=== PATIENT | female | born 1985 | race African-American/Black ===

== ENCOUNTER 2017-12-26 13:49 | Emergency (ER) | payer SELFPAY ==
[2017-12-26 13:50] VITALS: BP 108/70; PULSE 89; RESP 16; TEMP 36.6; O2SAT 98; BMI 34.5
[2017-12-26] MEDS: Ondansetron 4 MG/2 ML Vial IV (15:13)
[2017-12-26] MEDS: 0.9% Normal Saline 1,000 ML 1000 ML IV (15:13)
[2017-12-26 15:14] LABS: Mucous, Urine 0 SEEN /hpf (<or=2+)
[2017-12-26 15:17] LABS: Color, Urine Yellow (Yellow); Glucose, Dipstick Normal (Normal); Ketone-Dipstick Negative (Negative); Leukocyte Esterase-Dipstick 25 /ul (Negative); Nitrite-Dipstick Negative (Negative); Occult Blood-Urine 10 /ul (Negative); Protein-Dipstick Negative (Negative); Specific Gravity, Urine 1.015 (1.002-1.030); Urine Bilirubin Dipstick Negative (Negative); Urine Clarity Clear (Clear); Urine Urobilinogen Normal (Normal)
[2017-12-26 15:20] LABS: Absolute Lymphocyte Count 3.08 X10^3/ul (0.83-4.51); Absolute Neutrophil Count 3.8 X10^3/uL (2.0-7.7); Basophil# 0.03 X10^3/uL; Basophil% 0.4 % (0-1); Eosinophil# 0.14 X10^3/uL; Eosinophils% 1.9 % (0-5); Hematocrit 37.9 % (37-47); Hemoglobin 12.8 g/dl (12.0-15.0); Lymphocyte # 3.08 X10^3/ul (4.0); Lymphocyte % 41.6 % (19-41); Mean Corp Hgb Conc 33.8 g/gl (32-36); Mean Corpuscular Hgb 31.1 pg (27.0-32.0); Mean Platelet Vol. 9.3 fl (6.2-12.0); Monocyte# 0.37 X10^3/uL; Neutrophil # 3.77 X10^3/uL (2.7-7.7); Platelet Count 227 K/mm3 (150-450); RBC Distribution Width CV 13.1 % (11.6-14.6); RBC Distribution Width SD 43.5 fl (35.1-43.9); Red Blood Count 4.12 M/mm3 (4.2-5.4); White Blood Count 7.4 K/mm3 (4.4-11.0)
[2017-12-26 15:20] LABS: Internal QC Validated? YES +Cl - CLEAR BKGD; Pregnancy, Urine Negative Negative
[2017-12-26 15:21] LABS: POSITIVE COUNT NO; POSITIVE DIFFERENTIAL NO; POSITIVE MORPHOLOGY NO
[2017-12-26 15:24] LABS: Bacteria 1+ /hpf (None Seen); Red Blood Cells-Urine 0-5 SEEN /hpf (0-5); Squamous Epithelial Cells - UA 0-5 SEEN /hpf (5-10); White Blood Cells 0-5 SEEN /hpf (0-5)
[2017-12-26 15:24] LABS: AST(SGOT) 13 U/L (15-37); Alanine Aminotransfer ALT/SGPT 16 U/L (13-56); Albumin, Serum 3.3 g/dL (3.2-5.0); Alkaline Phosphatase 104 U/L (45-117); Anion Gap 5 (5-15); BUN 4 mg/dL (7-18); BUN/Creat Ratio 5.5 RATIO (10-20); Calcium,Total 8.6 mg/dL (8.5-10.1); Chloride 108 mmol/L (98-107); Creatinine, Serum 0.72 mg/dL (0.55-1.02); EST Glomerular Filtration Rate 99 mL/min (>60); Est Glom Filt Rate - Afr Amer 120 mL/min (>60); Estimated Creatinine Clearance 84.65 ml/min; Globulin 3.3 g/dL (2.2-4.2); Glucose 85 mg/dL (74-106); Lipase 53 U/L (73-393); Potassium 3.7 mmol/L (3.5-5.1); Protein, Total 6.6 g/dL (6.4-8.2); Sodium Level 141 mmol/L (136-145)
--- NOTE | 2017-12-26 15:40 | ED.DCSUM_ITS ---
- ER Visit Summary Date of Service: 12/26/17 Chief Complaint: Abdominal pain History of Present Illness: The patient is a 32 F who presents with abdominal pain nausea vomiting and diarrhea. She complains of 1 month of abdominal pain but it has been more constant and last week and a half. It is diffuse but greatest in the right upper quadrant. She also reports about 5 episodes of nonbloody nonbilious emesis and 5 episodes of loose stools in the past 2 days. No fevers. Physical Examination: Afebrile vitals are stable Moist because membranes Heart regular rate and rhythm Lungs are clear Abdomen soft nondistended she has some diffuse tenderness greatest in right upper quadrant tenderness Singh sign no guarding no rebound Test Results: CBC CMP lipase urinalysis all unremarkable and is negative. Emergency Department Course and Treatment: Patient was given IV fluids and antiemetics. She is resting comfortably on reevaluation. She was advised to follow-up as an outpatient. Given 1 month of abdominal pain with normal vital signs and normal laboratory studies I do not believe this is any acute surgical or life-threatening process. Was given a referral for primary care physician and discharge. Treatment Plan: [] Disposition: Discharge Impression: Abdominal pain Vomiting Diarrhea This note was generated with [employer] dictation software. It may contain incorrect words, spelling, and punctuation that were not noted in review of the chart prior to signing ED Disposition - Plan for ED Patient: Chief Complaint: Abd Pain Referrals: Care Physician,No Primary [Primary Care Provider] -
--- NOTE | 2017-12-26 15:46 | US_ITS ---
STUDY: ULTRASOUND RIGHT UPPER QUADRANT REASON FOR VISIT: Female, 32 years old. Right upper quadrant abdominal pain and nausea and vomiting. TECHNIQUE: Ultrasound evaluation of the right upper quadrant was performed with real-time and static mak-scale imaging. TECHNICAL QUALITY: Adequate. COMPARISON: None. FINDINGS: Liver: The liver measures 15.1 cm. There is normal echogenicity of the liver. The bile ducts are within normal limits. There is hepatic color flow. The direction of portal flow is hepatopetal. There is no demonstrated mass lesion. Gallbladder: Normal distended gallbladder. The gallbladder wall measures 1.6 mm. There is a negative sonographic Singh's sign. There is no pericholecystic fluid. There are no gallstones. Common Bile Duct (C.B.D.): The common bile duct measures 3.2 mm. Pancreas: Normal size of the head, body and tail of the pancreas. There is normal echogenicity of the pancreas. There is no demonstrated pancreatic mass or cyst. Right Kidney: Normal size of the right kidney. The right kidney measures 10.5 x 3.9 x 4.4 cm. Normal renal cortex. The right cortex measures 1.1 cm. There is no demonstrated renal mass or cyst. There is no right hydronephrosis. US/Gallbladder IMPRESSION: No sonographic evidence of acute right upper quadrant abdominal disease. Electronically Signed: Nya Turner MD at 17:28 EST , Service support ,
[2017-12-26 17:28] VITALS: BP 99/47; PULSE 55; RESP 18; O2SAT 99
[2017-12-26 17:41] VITALS: PULSE 58; RESP 18
== END 2017-12-26 17:42 | disposition home or self-care (01) ==
PROVIDERS: Emergency Provider Emergency Medicine
DX: R10.11 Right upper quadrant pain (principal); R11.2 Nausea with vomiting, unspecified; R19.7 Diarrhea, unspecified; Z72.0 Tobacco use
CPT/HCPCS: 76705; 80053; 81001; 81025; 83690; 85025; 96374; 96375; 99283; J7030; A4216; J2405

== ENCOUNTER 2019-04-10 16:10 | Emergency (ER) | payer SELFPAY ==
[2019-04-10 16:11] VITALS: BP 113/49; PULSE 86; RESP 15; TEMP 36.4; O2SAT 98; BMI 26.9
[2019-04-10 18:58] VITALS: BP 103/70; PULSE 73; RESP 16; O2SAT 96
--- NOTE | 2019-04-10 19:36 | CT_ITS ---
STUDY: CT ABDOMEN AND PELVIS WITH CONTRAST REASON FOR EXAM: Female, 33 years old. Epigastric pain RADIATION DOSAGE (If Supplied By Facility): CTDIvol = ( 14.57 ) mGy, DLP = ( 452.57 ) mGycm TECHNIQUE: Transaxial images were obtained from the dome of the diaphragm to the symphysis pubis without oral contrast. 100ML IV Isovue 300 was administered. Sagittal and coronal images were reconstructed. Individualized dose optimization techniques were used for this CT. COMPARISON: None. FINDINGS: The visualized lung bases are unremarkable. The visualized portions of the heart are within normal limits. Normal liver. Normal gallbladder and extrahepatic biliary system. Normal spleen. Normal pancreas. Normal bilateral adrenal glands. Normal right kidney. Normal left kidney. No sign of bowel obstruction. Possible mild wall thickening in the distal stomach and duodenum. Normal colon. The appendix is visualized and appears normal. Normal abdominal aorta. Normal inferior vena cava. Normal retroperitoneum. Normal urinary bladder. Normal uterus. Possible 1.3 cm right adnexal cystic nodule. Trace pelvic fluid. Small fatty umbilical hernia. Normal osseous structures. CT/Abdomen/Pelvis W IV Cont ONLY IMPRESSION: Possible mild wall thickening of the distal stomach and duodenum. No bowel obstruction. Possible small right adnexal cystic nodule. Trace pelvic fluid. Small fatty umbilical hernia. Electronically Signed: Errol Houser DO at 20:45 EDT Tel [phone], Service support ,
--- NOTE | 2019-04-10 19:40 | ED.DCSUM_ITS ---
- ER Visit Summary Date of Service: 04/10/19 Chief Complaint: Epigastric abdominal pain for months History of Present Illness: The patient is a 33 F no seen past medical or surgical history. States she has had epigastric abdominal pain for months. Associated nausea but no vomiting, diarrhea or fever. No melena. No dysuria. Last menstrual period was 2 weeks ago and states she is not . Is never had any prior abdominal surgeries. Physical Examination: Well-appearing young female. Vital signs are stable. Afebrile. She does not look septic or toxic. She is in no acute distress. H EENT exam unremarkable. Neck nontender no lymphadenopathy. Lungs clear to auscultation bilaterally. Heart regular rhythm no murmur. Abdomen is soft nondistended normal bowel sounds no peritoneal signs. No signs of obstruction. Does have epigastric tenderness. No rebound guarding or rigidity. No Singh sign or McBurney's point tenderness. Extremities moves all 4. Neurovascular intact. No edema. Back nontender. Neurologically awake alert with no focal motor deficits. Test Results: CBC showed a mild anemia with a hemoglobin 11.8 previously was 12.8. White count of 7. Chemistries unremarkable normal creatinine and gap. Liver enzymes unremarkable other than alkaline phosphatase slightly elevated 128. Lipase normal at 41 and serum test negative. Emergency Department Course and Treatment: Patient undergo screening labs. Due to her 30 pound plus weight loss almost 40 pounds I will do a CT abdomen pelvis with IV contrast. Repeat exam patient is doing well. She received a liter of normal saline. She and I went over all of her test results. This is most likely secondary to gastritis and esophagitis. But she will need to follow-up due to the weight loss. She may need endoscopy if that does not improve with a PPI. Treatment Plan: Protonix daily. Follow-up in a local primary care physician. Further evaluation if not improving in weight gain not occurring. Disposition: Discharge Impression: Acute epigastric abdominal pain secondary to gastritis Weight loss This note was generated with [employer] dictation software. It may contain incorrect words, spelling, and punctuation that were not noted in review of the chart prior to signing ED Disposition - Plan for ED Patient: Referrals: Care Physician,No Primary [Primary Care Provider] -
[2019-04-10] MEDS: Ondansetron 4 MG/2 ML Vial IV (19:53)
[2019-04-10 19:54] LABS: Absolute Lymphocyte Count 2.75 X10^3/ul (0.83-4.51); Absolute Neutrophil Count 4.2 X10^3/uL (2.0-7.7); Basophil# 0.01 X10^3/uL; Basophil% 0.1 % (0-1); Eosinophil# 0.09 X10^3/uL; Eosinophils% 1.2 % (0-5); Hematocrit 35.6 % (37-47); Hemoglobin 11.8 g/dl (12.0-15.0); Lymphocyte # 2.75 X10^3/ul (4.0); Lymphocyte % 37.1 % (19-41); Mean Corp Hgb Conc 33.1 g/gl (32-36); Mean Corpuscular Hgb 30.5 pg (27.0-32.0); Mean Platelet Vol. 9.5 fl (6.2-12.0); Monocyte# 0.37 X10^3/uL; Neutrophil # 4.19 X10^3/uL (2.7-7.7); Neutrophil % 56.5 % (47-70); Platelet Count 210 K/mm3 (150-450); RBC Distribution Width CV 14.3 % (11.6-14.6); RBC Distribution Width SD 47.5 fl (35.1-43.9); Red Blood Count 3.87 M/mm3 (4.2-5.4); White Blood Count 7.4 K/mm3 (4.4-11.0)
[2019-04-10 19:55] LABS: POSITIVE COUNT NO; POSITIVE DIFFERENTIAL NO; POSITIVE MORPHOLOGY NO
[2019-04-10 20:03] LABS: Internal QC Validated? YES +Cl - CLEAR BKGD; Pregnancy, Serum, hCG Quali. NEGATIVE Negative
[2019-04-10 20:09] LABS: AST(SGOT) 10 U/L (15-37); Alanine Aminotransfer ALT/SGPT 12 U/L (13-56); Albumin, Serum 3.5 g/dL (3.2-5.0); Alkaline Phosphatase 128 U/L (45-117); Anion Gap 3 (5-15); BUN 6 mg/dL (7-18); BUN/Creat Ratio 8.4 RATIO (10-20); Bilirubin, Direct 0.21 mg/dL (0.00-0.30); Calcium,Total 8.9 mg/dL (8.5-10.1); Chloride 107 mmol/L (98-107); Creatinine, Serum 0.71 mg/dL (0.55-1.02); EST Glomerular Filtration Rate 100 mL/min (>60); Est Glom Filt Rate - Afr Amer 121 mL/min (>60); Estimated Creatinine Clearance 85.04 ml/min; Globulin 3.2 g/dL (2.2-4.2); Glucose 78 mg/dL (74-106); Lipase 41 U/L (73-393); Potassium 3.6 mmol/L (3.5-5.1); Protein, Total 6.7 g/dL (6.4-8.2); Sodium Level 136 mmol/L (136-145)
--- NOTE | 2019-04-10 21:15 | ED.DEP ---
ED Disposition - Plan for ED Patient: Disposition: Home or Assisted Living Instructions: ED Gastritis Prescriptions: Pantoprazole Sodium [Protonix] 40 mg PO DAILY #30 tab Referrals: Geoffrey Ritter MD [STAFF PHYSICIAN] - As soon as possible Additional Instructions: Call follow-up with a local primary care physician. May be secondary to inflammation of your stomach and esophagus, gastritis. Start the medication Protonix which should help with the reflux and the stomach pain. If not improving and you not gaining weight you may need a upper endoscopy done.
[2019-04-10 21:29] VITALS: BP 108/90; PULSE 75; RESP 16; O2SAT 98
== END 2019-04-10 21:31 | disposition home or self-care (01) ==
PROVIDERS: Emergency Provider Emergency Medicine
DX: K29.70 Gastritis, unspecified, without bleeding (principal); R10.13 Epigastric pain; R63.4 Abnormal weight loss; D64.9 Anemia, unspecified; F17.200 Nicotine dependence, unspecified, uncomplicated
CPT/HCPCS: 74177; 80048; 80076; 83690; 84703; 85025; 96374; 99283; J7030; Q9967; A4216; J2405

== ENCOUNTER 2019-04-23 11:35 | Emergency (ER) | payer SELFPAY ==
[2019-04-23 11:36] VITALS: BP 103/47; PULSE 98; RESP 16; TEMP 36.8; O2SAT 99; BMI 27.0
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
--- NOTE | 2019-04-23 12:32 | ED.DEP ---
ED Disposition - Plan for ED Patient: Disposition: Home or Assisted Living Instructions: CONTUSION, Upper Extremity Referrals: Michael Ponce MD [STAFF PHYSICIAN] - 1 Week if not improving Additional Instructions: As noted right hand. Motrin for pain and swelling and Tylenol for pain. Follow-up in 1 week if not improving.
[2019-04-23 12:43] VITALS: BP 110/85; PULSE 85; RESP 16; O2SAT 98
== END 2019-04-23 12:43 | disposition home or self-care (01) ==
PROVIDERS: Emergency Provider Emergency Medicine
DX: S60.221A Contusion of right hand, initial encounter (principal); W22.8XXA Striking against or struck by other objects, initial encounter; Y93.89 Activity, other specified; Y92.818 Other transport vehicle as the place of occurrence of the external cause; K21.9 Gastro-esophageal reflux disease without esophagitis; Z72.0 Tobacco use
CPT/HCPCS: 73110; 73130; 99282

== ENCOUNTER 2019-09-15 12:46 | Emergency (ER) | payer SELFPAY ==
[2019-09-15 12:46] VITALS: BP 97/56; PULSE 91; RESP 16; TEMP 36.8; O2SAT 100; BMI 27.0
--- NOTE | 2019-09-15 13:40 | CT_ITS ---
STUDY: CT ABDOMEN AND PELVIS WITH CONTRAST REASON FOR EXAM: Female, 34 years old. Right lower quadrant pain. Abdominal pain for months RADIATION DOSAGE (If Supplied By Facility): CTDIvol = ( 9.89 ) mGy, DLP = ( 449.20 ) mGycm TECHNIQUE: Transaxial images were obtained from the dome of the diaphragm to the symphysis pubis without oral contrast. IV Isovue 370 100 was administered. Sagittal and coronal images were reconstructed. Individualized dose optimization techniques were used for this CT. COMPARISON: None. FINDINGS: Lung bases demonstrate no evidence for consolidative process. No pericardial effusion. Hepatic steatosis. Wall thickening of the stomach which is nonspecific in imaging appearance however can be seen in the setting of gastritis. Mild dilatation of the third segment of the duodenum also seen. Normal appendix. Kidneys demonstrate no evidence for hydronephrosis. There is a low-attenuation structure in the uterus noted possibly a fibroid with endometrial thickening best assessed with sonography. Normal caliber of the abdominal aorta. Kidneys demonstrate no evidence for hydronephrosis. IMPRESSION: Heterogeneous appearance of the uterus with a cystic-appearing structure in the endometrial cavity and thickening of the endometrium best assessed with sonography. Wall thickening of the urinary bladder which can be seen in the setting of cystitis. No evidence for obstructive uropathy. No evidence for small bowel obstruction. No definite evidence for acute diverticulitis. No evidence for acute appendicitis. Electronically Signed: Juan Dennison, at 15:18 EST Tel , Service support , CT/Abdomen/Pelvis W IV Cont ONLY
--- NOTE | 2019-09-15 13:43 | ED.DCSUM_ITS ---
History of Present Illness Informant: Patient Narrative: 34-year-old female presents with abdominal pain. Patient states that pain became worse last night. Describes as 7/10. Describes as burning aching and throbbing. Says is in the epigastric and lower abdominal region. Denies any dysuria. States in the past she has had similar pain. She states that it was due to a possible ulcer. Has never had an EGD. Was on [id number] medication for symptoms. Does not know what this was. States she ran out of it 2 to 3 weeks ago. Denies any nausea vomiting diarrhea. Denies any melena or hematochezia Does note states that she does have a headache. Patient denies having a headache. Also states that she has chest pain. States that she only has chest pain when she coughs. Says she has been having this for years. <Geoffrey Mason - Last Filed: 09/15/19 18:43> <Kourtney Haque - Last Filed: 09/21/19 11:16> Chief Complaint: Abd Pain Past Medical History Smoking Status: Current every day smoker <Geoffrey Mason - Last Filed: 09/15/19 18:43> Prior records reviewed: Yes Past Medical History: - - GERD, Asthma Surgical History: no surgical history Lives: Spouse/ Significant Other Alcohol: Occasional <Kourtney Haque - Last Filed: 09/21/19 11:16> - Allergies and Home Meds Allergies/Adverse Reactions: Allergies aspirin Allergy (Verified 09/15/19 12:48) Hives Penicillins Allergy (Verified 09/15/19 12:48) Rash Primary Care Physician: Care Physician,No Primary [Primary Care Provider] - Review of Systems General: Denies: Chills, Fever Cardiovascular: Reports: - - Chest pain only with cough Respiratory: Reports: Cough. Denies: Dyspnea Gastrointestinal: Reports: Abdominal pain, Nausea. Denies: Vomiting, Diarrhea, Melena, Hematochezia Genitourinary: Denies: Dysuria, Hematuria Neurological: Denies: Headache, Weakness <Geoffrey Mason - Last Filed: 09/15/19 18:43> Musculoskeletal: Denies: Myalgias, Arthralgias Skin: Denies: Rash <Kourtney Haque - Last Filed: 09/21/19 11:16> Physical Exam Vital Signs/Narrative: Vital Signs Temp Pulse Resp BP Pulse Ox 09/15/19 12:46 98.3 F 91 16 97/56 L 100 General: Well nourished, Well developed, No Acute Distress Head: Normocephalic, Atraumatic Eyes: Perrl, EOMI ENT: Moist mucous membranes, No rhinorrhea Neck: Supple, Nontender Cardiovascular: Regular rate, Regular rhythm, No murmurs Respiratory: No distress, CTA bilaterally, Chest nontender Abdomen: - - She has tenderness in the epigastric region, suprapubic region and right lower quadrant. No rebound tenderness. Negative Rovsing sign. No guarding. Non-peritoneal. Negative heel strike. Back: Nontender, Normal Inspection Extremities: Nontender, No edema Skin: Normal color, No rash Neurological: Alert, Oriented x3, Cranial nerves II-XII grossly intact, Normal Strength, Normal Sensation Psychological: Normal affect, Normal Mood <Geoffrey Mason - Last Filed: 09/15/19 18:43> Inital Vital Signs reviewed: Yes Abdomen: Soft, -. Negative for: Singh's sign <Kourtney Haque - Last Filed: 09/21/19 11:16> Diagnostic/Tx/Re-eval - Medical Decision Making Evaluated for abdominal pain. Appears well and nontoxic. States pain became worse last night. Describes an epigastric and suprapubic region. On exam does have pain in the right lower quadrant. Labs obtained. Imaging obtained. Given Protonix. Patient had no leukocytosis, no anemia. Urinalysis. This showed gastric thickening and likely uterine fibroid. Patient was informed of these. 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 Patient was given prescription for omeprazole for home. Patient was then discharged home with instructions to follow-up with a primary care provider and OB. <Geoffrey Mason - Last Filed: 09/15/19 18:43> Diagnostic Data Abdomen/Pelvis CT 09/15/19 13:40 IMPRESSION: Heterogeneous appearance of the uterus with a cystic-appearing structure in the endometrial cavity and thickening of the endometrium best assessed with sonography. Wall thickening of the urinary bladder which can be seen in the setting of cystitis. No evidence for obstructive uropathy. No evidence for small bowel obstruction. No definite evidence for acute diverticulitis. No evidence for acute appendicitis. Labs (Abnormal Only-Last Result) RBC 4.19 M/mm3 (4.2-5.4) L 09/15/19 14:05 MCHC 31.3 g/dL (32-36) L 09/15/19 14:05 RDW Std Deviation 54.9 fl (35.1-43.9) H 09/15/19 14:05 RDW Coeff of Serena 16.0 % (11.6-14.6) H 09/15/19 14:05 AST 13 U/L (15-37) L 09/15/19 14:05 Urine Occult Blood 10 /ul (Negative) H 09/15/19 14:00 - Medical Decision Making Patient evaluated by myself independent of resident and HPI and ROS performed separately. Agree with above. Patient has worsening epigastric abdominal pain as well as lower abdominal pain. She seems to have been on some type of OTC antacid in the past but ran out/stopped a couple of weeks ago. In addition she admits to binge drinking and states that she drank heavily last night. She denies any symptoms including dysuria or abnormal vaginal discharge. + nausea, vomiting and diarrhea. No black or blood in vomit or stool. No chest pain or SOB. Some tenderness of abdominal exam but negative Singh's sign. Does have TTP at RLQ. CT abd/pelvis obtained to rule out appendicitis. This is negative. Lipase normal, do not suspect pancreatitis. UA not consistent with infection however CT does show mild inflammation of the bladder consistent with cystitis. Patient does not have urinary symptoms and I do not think it is infection. Also normal WBC and no fever. CT also shows possible fibroids. This may explain her lower abdominal pain. Urine preg negative, do not suspect ectopic. Again no symptoms and i have a low suspicion for PID. Finally GT does show inflammation of stomach consistent with gastritis. This is consistent with patient's clinical picture. Patient given a GI cocktail and started on a PPI. She is counseled to limit/stop alcohol use. She is informed of all findings and instructed to follow up with [employer] as well as PCP. Counseled on signs and symptoms requiring return to the ED. Counseled on importance of outpatient follow up. Patient verbalized agreement and understanding with this plan and was discharged home in stable and improved condition. <Kourtney Haque - Last Filed: 09/21/19 11:16> ED Disposition <Geoffrey Mason - Last Filed: 09/15/19 18:43> <Kourtney Haque - Last Filed: 09/21/19 11:16> - Plan for ED Patient: Disposition: Home or Assisted Living Diagnosis: Epigastric abdominal pain Instructions: ABDOMINAL PAIN, Unknown Cause, (Female) Prescriptions: Omeprazole 20 mg PO DAILY #30 tab. Prescription Printed Referrals: Care Physician,No Primary [Primary Care Provider] -
[2019-09-15 14:16] LABS: Mucous, Urine 0 SEEN /hpf (<or=2+); White Blood Cells 0 SEEN /hpf (0-5)
[2019-09-15 14:17] LABS: Absolute Lymphocyte Count 2.37 X10^3/uL (0.83-4.51); Absolute Neutrophil Count 4.6 X10^3/uL (2.0-7.7); Basophil# 0.04 X10^3/uL; Basophil% 0.5 % (0-1); Eosinophil# 0.07 X10^3/uL; Eosinophils% 0.9 % (0-5); Hematocrit 39.3 % (37-47); Hemoglobin 12.3 g/dL (12.0-15.0); Lymphocyte # 2.37 X10^3/ul (4.0); Lymphocyte % 31.2 % (19-41); Mean Corp Hgb Conc 31.3 g/dL (32-36); Mean Corpuscular Hgb 29.4 pg (27.0-32.0); Mean Corpuscular Volume 93.8 fL (81-99); Mean Platelet Vol. 9.9 fl (6.2-12.0); Monocyte# 0.53 X10^3/uL; NRBC Flagged by Analyzer 0 % (0-5); Neutrophil # 4.57 X10^3/uL (2.7-7.7); Neutrophil % 60.3 % (47-70); Platelet Count 244 K/mm3 (150-450); RBC Distribution Width SD 54.9 fl (35.1-43.9); Red Blood Count 4.19 M/mm3 (4.2-5.4); White Blood Count 7.6 K/mm3 (4.4-11.0)
[2019-09-15 14:17] LABS: Color, Urine Yellow (Yellow); Glucose, Dipstick Normal (Normal); Ketone-Dipstick Negative (Negative); Leukocyte Esterase-Dipstick Negative /ul (Negative); Nitrite-Dipstick Negative (Negative); Occult Blood-Urine 10 /ul (Negative); Protein-Dipstick Negative (Negative); Specific Gravity, Urine 1.015 (1.002-1.030); Urine Bilirubin Dipstick Negative (Negative); Urine Clarity Sl. Cloudy (Clear); Urine Urobilinogen Normal (Normal)
[2019-09-15 14:19] LABS: Internal QC Validated? YES +Cl - CLEAR BKGD; Pregnancy, Urine Negative Negative
[2019-09-15 14:26] LABS: Bacteria RARE /hpf (None Seen); Red Blood Cells-Urine 0-5 SEEN /hpf (0-5); Squamous Epithelial Cells - UA 0-5 SEEN /hpf (5-10)
[2019-09-15 14:39] LABS: ALB/GLOB Ratio 0.9 RATIO (0.9-2.4); AST(SGOT) 13 U/L (15-37); Alanine Aminotransfer ALT/SGPT 21 U/L (13-56); Albumin, Serum 3.4 g/dL (3.2-5.0); Alkaline Phosphatase 106 U/L (45-117); Anion Gap 5 (5-15); BUN 8 mg/dL (7-18); BUN/Creat Ratio 10.6 RATIO (10-20); Calcium,Total 8.8 mg/dL (8.5-10.1); Chloride 106 mmol/L (98-107); Creatinine, Serum 0.76 mg/dL (0.55-1.02); EST Glomerular Filtration Rate 93 mL/min (>60); Est Glom Filt Rate - Afr Amer 113 mL/min (>60); Estimated Creatinine Clearance 78.71 ml/min; Globulin 3.8 g/dL (2.2-4.2); Glucose 85 mg/dL (74-106); Lipase 73 U/L (73-393); Potassium 3.9 mmol/L (3.5-5.1); Protein, Total 7.2 g/dL (6.4-8.2); Sodium Level 139 mmol/L (136-145)
[2019-09-15 17:04] VITALS: BP 98/62; PULSE 72; RESP 18; O2SAT 98
--- NOTE | 2019-09-15 17:05 | ED.RN ---
THIS NURSE REVIEWED D/C INSTRUCTIONS WITH PT. PT VERBALIZED UNDERSTANDING OF INSTRUCTIONS. IV D/C. IV CATHETER INTACT. PT TOLERATED WELL. PT DENIES FURTHER NEEDS OR QUESTIONS AT THIS TIME. PT AMBULATES FROM ROOM ON OWN WITHOUT ASSISTANCE FROM STAFF
== END 2019-09-15 17:06 | disposition home or self-care (01) ==
LOC: ED 13:48
PROVIDERS: Emergency Provider Emergency Medicine
DX: R10.13 Epigastric pain (principal); R10.31 Right lower quadrant pain; F17.200 Nicotine dependence, unspecified, uncomplicated
CPT/HCPCS: 74177; 80053; 81001; 81025; 83690; 85025; 96365; 99284; Q9967

== ENCOUNTER 2020-04-12 11:24 | Emergency (ER) | payer SELFPAY ==
[2020-04-12 11:26] VITALS: BP 113/37; PULSE 105; RESP 18; TEMP 36.6; O2SAT 100; BMI 28.0
--- NOTE | 2020-04-12 11:44 | ED.VIS.GI ---
History of Present Illness Informant: Patient - Abdominal Pain/Flank Pain Onset: Month(s) - 12 months Context: Gradual Onset Timing: Intermittent Quality: Burning Location: Epigastric Current Severity: Moderate Maximum Severity: Severe Worsened by: Food Relieved by: Remaining Still - Nausea/Vomiting/Emesis GI Symptom: Nausea. Negative for: Vomiting - Diarrhea/Melena/Hematochezia GI Symptom: Negative for: Diarrhea, Melena, Hematochezia Associated Symptoms: Negative for: Dysuria, Frequency, Hematuria, Urgency Narrative: 34-year-old female history of GERD presents with epigastric abdominal pain intermittently for 1 year. She was seen here about 8 or 9 months ago prescribed Prilosec significantly helped the pain but she is out of refills and is having pain consistent with her previous pain that was diagnosed as GERD. No fevers no vomiting no diarrhea no loss of bowel or bladder no melena or hematochezia no hematemesis or coffee-ground emesis no chest pain or shortness of breath or difficulty swallowing. Denies chance of . No urinary symptoms. No vaginal bleeding or discharge. Prior similar symptoms: Yes Recent Illness/Hospitalization: No <Kwaku West - Last Filed: 04/12/20 11:53> <Amelia Montes - Last Filed: 04/12/20 12:00> Chief Complaint: Abd Pain Past Medical History Prior records reviewed: Yes Past Medical History: - - GERD Surgical History: no surgical history Lives: With Family Smoking Status: Current every day smoker Alcohol: Occasional Drugs: None <Kwaku West - Last Filed: 04/12/20 11:53> <Amelia Montes - Last Filed: 04/12/20 12:00> - Allergies and Home Meds Allergies/Adverse Reactions: Allergies aspirin Allergy (Verified 04/12/20 11:29) Hives Penicillins Allergy (Verified 04/12/20 11:29) Rash Primary Care Physician: Jean Bingham MD [STAFF PHYSICIAN] - Care Physician,No Primary [Primary Care Provider] - Review of Systems General: Denies: Chills, Fever, Sweats Eyes: Denies: Visual changes - bilaterally, Diplopia ENT: Denies: Rhinorrhea, Sore throat Cardiovascular: Denies: Chest pain, Palpitations Respiratory: Denies: Dyspnea, Cough, Dyspnea on exertion Gastrointestinal: Reports: Abdominal pain, Constipation. Denies: Nausea, Vomiting, Diarrhea, Melena, Hematochezia Genitourinary: Denies: Dysuria, Hematuria, Frequency Musculoskeletal: Denies: Back pain, Extremity Pain Skin: Denies: Rash, Wounds Neurological: Denies: Headache, Weakness, Numbness <Kwaku West - Last Filed: 04/12/20 11:53> Physical Exam Vital Signs/Narrative: Vital Signs Temp Pulse Resp BP Pulse Ox 04/12/20 11:26 97.8 F 105 H 18 113/37 L 100 Inital Vital Signs reviewed: Yes General: Well nourished, Well developed, No Acute Distress Head: Normocephalic, Atraumatic Eyes: Perrl, EOMI ENT: Moist mucous membranes, No rhinorrhea Neck: Supple, Nontender Cardiovascular: Regular rate, Regular rhythm, No murmurs Respiratory: No distress, CTA bilaterally, Chest nontender Abdomen: Soft, Nontender, Nondistended, Normal bowel sounds Back: Nontender, Normal Inspection. Negative for: CVA tenderness Extremities: Nontender, No edema Skin: Normal color, No rash Neurological: Alert, Oriented x3, Cranial nerves II-XII grossly intact, Normal Strength, Normal Sensation Psychological: Normal affect, Normal Mood <Kwaku West - Last Filed: 04/12/20 11:53> Vital Signs/Narrative: Vital Signs Temp Pulse Resp BP Pulse Ox 04/12/20 11:26 97.8 F 105 H 18 113/37 L 100 <Amelia Montes - Last Filed: 04/12/20 12:00> Diagnostic/Tx/Re-eval - Medical Decision Making Patient presents with acute on chronic abdominal pain and likely GERD. Patient declines work-up is essentially here for refill of Prilosec. She was given a GI cocktail. She is not concerned for . Will discharge with Prilosec and referral to a primary care physician <Kwaku West - Last Filed: 04/12/20 11:53> - Medical Decision Making The patient was seen with Kwaku corbett with history and physical as above The patient's had upper abdominal epigastric pain for some time she reports she is out of her proton pump inhibitor she is had recurrence of her symptoms, she has followed up through [facility] and apparently supposed to have additional follow-up visits those were not coordinated or completed due to coronavirus emergency no other complaints or issues this is not a new condition On exam she has a very vague discomfort epigastric area no rebound guarding organomegaly, discussed all the above with the patient explained her we could do an ED evaluation but she is had testing in the past she declined that we will at this time the plan we discussed with her is refilling her proton pump inhibitor and having her follow-up with her outpatient providers for further management and she is comfortable with this plan <Amelia Montes - Last Filed: 04/12/20 12:00> ED Disposition <Kwaku West - Last Filed: 04/12/20 11:53> <Amelia Montes - Last Filed: 04/12/20 12:00> - Plan for ED Patient: Disposition: Home or Assisted Living Diagnosis: Abdominal pain, GERD (gastroesophageal reflux disease) Instructions: ED ACID INDIGESTION Adult Prescriptions: Omeprazole [Prilosec] 20 mg PO DAILY #30 cap Prescription Printed Referrals: Care Physician,No Primary [Primary Care Provider] - Jean Bingham MD [STAFF PHYSICIAN] -
[2020-04-12] MEDS: Mag Hydrox/Al Hydrox/Simeth 30 ML UDC PO (11:51)
[2020-04-12 12:25] VITALS: RESP 15
== END 2020-04-12 12:25 | disposition home or self-care (01) ==
PROVIDERS: Emergency Provider Physician Assistant Medical
DX: R10.13 Epigastric pain (principal); K21.9 Gastro-esophageal reflux disease without esophagitis; F17.200 Nicotine dependence, unspecified, uncomplicated
CPT/HCPCS: 96374; 99283

== ENCOUNTER 2020-04-26 14:06 | Emergency (ER) | payer SELFPAY ==
[2020-04-26 14:09] VITALS: BP 123/27; PULSE 90; RESP 17; TEMP 36.7; O2SAT 99; BMI 28.0
--- NOTE | 2020-04-26 14:28 | ED.VISSUMM ---
- ER Visit Summary Date of Service: 04/26/20 Chief Complaint: Bilateral leg pain History of Present Illness: The patient is a 34 F who presents with bilateral leg pain that is been getting worse over the past 3 weeks. Patient denies any specific trauma or injury. Patient states the pain is aching. Patient states nothing makes the pain better. Patient states the pain is worse with weightbearing and ambulation. Patient admits to some tingling and weakness in her lower legs. Patient also admits to some bruising over her lower legs. Patient denies any history of blood clots, DVT, or PE. Patient denies any chest pain. Patient admits to some mild shortness of breath but states she has a smoker. Physical Examination: Vital signs are stable. Patient is afebrile. Patient is in no acute distress. Heart was regular rate and rhythm. Lungs are clear and equal bilaterally. Abdomen is soft. Bowel sounds are normal. There is no tenderness. Extremities are intact. There is some ecchymosis of the calves bilaterally. There is some mild tenderness. There is no bony crepitance or step-off. Strength is 5/5 bilaterally in the lower extremities. Sensation was intact bilaterally in the lower extremities. Pedal pulses are equal bilaterally. Test Results: CBC, comprehensive metabolic profile, PT with INR, PTT were obtained and were all within normal limits. Emergency Department Course and Treatment: Patient was feeling better on reevaluation. Patient was instructed to take Tylenol as needed for pain. Patient was instructed drink plenty of fluids. Patient was given a note for work for today. Patient was instructed to follow-up with her primary care physician in 5 to 7 days. Patient understood and was agreeable with the plan. All questions were answered. Disposition: Discharge home Impression: Myalgias This note was generated with [employer] dictation software. It may contain incorrect words, spelling, and punctuation that were not noted in review of the chart prior to signing ED Disposition - Plan for ED Patient: Disposition: Home or Assisted Living Diagnosis: Myalgia Instructions: ED ACHING MUSCLES Referrals: Lashawn Sorto MD [STAFF PHYSICIAN] - 5-7 Days
[2020-04-26 14:47] LABS: Absolute Lymphocyte Count 2.42 X10^3/uL (0.83-4.51); Absolute Neutrophil Count 3.2 X10^3/uL (2.0-7.7); Basophil# 0.04 X10^3/uL; Basophil% 0.6 % (0-1); Eosinophil# 0.09 X10^3/uL; Eosinophils% 1.5 % (0-5); Hematocrit 36.4 % (37-47); Hemoglobin 11.4 g/dL (12.0-15.0); Lymphocyte # 2.42 X10^3/ul (4.0); Lymphocyte % 39.2 % (19-41); Mean Corp Hgb Conc 31.3 g/dL (32-36); Mean Corpuscular Hgb 28.9 pg (27.0-32.0); Mean Corpuscular Volume 92.4 fL (81-99); Mean Platelet Vol. 9.2 fl (6.2-12.0); Monocyte# 0.46 X10^3/uL; Monocyte% 7.4 % (0-10); NRBC Flagged by Analyzer 0 % (0-5); Neutrophil # 3.16 X10^3/uL (2.7-7.7); Neutrophil % 51.1 % (47-70); Platelet Count 292 K/mm3 (150-450); RBC Distribution Width CV 15.9 % (11.6-14.6); RBC Distribution Width SD 53.7 fl (35.1-43.9); Red Blood Count 3.94 M/mm3 (4.2-5.4); White Blood Count 6.2 K/mm3 (4.4-11.0)
[2020-04-26 14:55] LABS: International Normalized Ratio 1.1; Prothrombin Time (Protime)PT. 13.9 SECONDS (11.7-14.9)
[2020-04-26 14:56] LABS: Partial Thromboplast Time 26.2 Seconds (24.1-36.2)
[2020-04-26 15:08] LABS: ALB/GLOB Ratio 0.9 RATIO (0.9-2.4); AST(SGOT) 19 U/L (15-37); Alanine Aminotransfer ALT/SGPT 27 U/L (13-56); Albumin, Serum 3.3 g/dL (3.2-5.0); Alkaline Phosphatase 84 U/L (45-117); Anion Gap 7 (5-15); BUN 13 mg/dL (7-18); BUN/Creat Ratio 17.8 RATIO (10-20); Calcium,Total 8.7 mg/dL (8.5-10.1); Chloride 109 mmol/L (98-107); Creatinine, Serum 0.73 mg/dL (0.55-1.02); EST Glomerular Filtration Rate 96 mL/min (>60); Est Glom Filt Rate - Afr Amer 117 mL/min (>60); Estimated Creatinine Clearance 81.94 ml/min; Globulin 3.7 g/dL (2.2-4.2); Glucose 85 mg/dL (74-106); Potassium 3.8 mmol/L (3.5-5.1); Sodium Level 142 mmol/L (136-145)
[2020-04-26 15:30] VITALS: RESP 16
== END 2020-04-26 15:31 | disposition home or self-care (01) ==
PROVIDERS: Emergency Provider Emergency Medicine
DX: M79.10 Myalgia, unspecified site (principal); F17.200 Nicotine dependence, unspecified, uncomplicated; K21.9 Gastro-esophageal reflux disease without esophagitis
CPT/HCPCS: 80053; 85025; 85610; 85730; 99283; A4216

== ENCOUNTER 2020-05-31 17:15 | Emergency (ER) | payer SELFPAY ==
[2020-05-31 17:15] VITALS: BP 138/66; PULSE 84; PULSE 96; RESP 16; TEMP 36.6; O2SAT 100; BMI 29.8
[2020-05-31 17:24] VITALS: BP 138/66; PULSE 84; RESP 16; TEMP 36.6; O2SAT 100
--- NOTE | 2020-05-31 17:35 | ED.DCSUM_ITS ---
History of Present Illness Chief Complaint: General Illness Informant: Patient Onset: Days - 3 Context: Gradual Onset Timing: Continuous Quality: prod cough w/ yellow sputum Location: chest Current Severity: Moderate Maximum Severity: Moderate Worsened by: - - nothing Relieved by: - - nothing Associated Symptoms: Headache, Myalgias, Nausea, Vomiting, Shortness of Breath - wheezing, Productive Cough. Negative for: Nasal Congestion, Diarrhea, Chest Pain, Hemoptysis Narrative: 34-year-old female presents with cough, myalgias, subjective fevers and chills, headache, shortness of breath off and on for the past several days. She does not have a history of asthma. Patient presents during the national coronavirus emergency declaration/pandemic. She denies any known contact with anyone infected with COVID-19, but she works at [employer]. She denies traveling out of the immediate area recently. States that she had pneumonia before, and since she started getting short of breath and feeling poorly wanted to make sure she did not have it again. Past Medical History - Allergies and Home Meds Allergies/Adverse Reactions: Allergies aspirin Allergy (Verified 05/31/20 17:29) Hives Penicillins Allergy (Verified 05/31/20 17:29) Rash Primary Care Physician: Care Physician,No Primary [Primary Care Provider] - Past Medical History: None Surgical History: no surgical history Smoking Status: Current every day smoker Review of Systems General: Reports: Chills, Fever, Malaise, Subjective. Denies: Sweats Eyes: Denies: Visual changes - bilaterally, Diplopia ENT: Denies: Bilateral ear pain, Rhinorrhea, Sore throat Cardiovascular: Denies: Chest pain, Palpitations Respiratory: Reports: Dyspnea, Cough, Sputum. Denies: Dyspnea on exertion, Orthopnea Gastrointestinal: Reports: Abdominal pain - Off and on chronically, no different, Nausea, Vomiting. Denies: Diarrhea, Melena, Hematochezia Genitourinary: Denies: Dysuria, Hematuria, Frequency Musculoskeletal: Denies: Myalgias, Neck pain, Back pain, Swelling Skin: Denies: Rash, Wounds Neurological: Reports: Headache. Denies: Weakness, Numbness Physical Exam Vital Signs/Narrative: Vital Signs Temp Pulse Resp BP Pulse Ox 05/31/20 17:24 97.8 F 84 16 138/66 H 100 05/31/20 17:15 97.8 F 84 16 138/66 H 100 Inital Vital Signs reviewed: Yes General: Well nourished, Well developed, - - Well-appearing, no distress. Conversive in full sentences. Head: Normocephalic, Atraumatic Eyes: Perrl, EOMI Ears: Normal external canal, TM's clear Neck: Supple, Nontender Cardiovascular: Regular rate, Regular rhythm, No murmurs. Negative for: Tachycardia Respiratory: No distress, CTA bilaterally, Chest nontender Abdomen: Soft, Nontender, Nondistended, Normal bowel sounds Back: Nontender, Normal Inspection. Negative for: CVA tenderness Extremities: Nontender, No edema. Negative for: Calf Tenderness Skin: Normal color, No rash, No Trauma Neurological: Alert, Oriented x3, Cranial nerves II-XII grossly intact, Normal Strength, Normal Sensation, Normal Gait Psychological: Normal affect, Normal Mood Diagnostic/Tx/Re-eval Clinical Impression(s) from Imaging Studies Chest X-Ray 05/31/20 17:50 IMPRESSION: Normal x-ray examination of the chest. Electronically Signed: Everton Wild, at 18:10 EDT Tel , Service support , - Medical Decision Making X-ray normal. Her exam is unremarkable, her pulse ox is 100% and her other vital signs are normal. There is no indication for admission to the hospital, I did send an outpatient COVID swab, that will come back in 3-5 days, she is advised to stay home from work and quarantine herself until the results return, she was given a work note, as well as a prescription for an albuterol inhaler to use as needed. She is comfortable with that plan. ED Disposition - Plan for ED Patient: Disposition: Home or Assisted Living Diagnosis: Upper respiratory tract infection, Wheezing Instructions: ED URI Viral Prescriptions: Albuterol Inhaler [Ventolin Hfa] 1 - 2 puff INHALATION Q4H PRN PRN #1 inhaler PRN Reason: Wheezing Prescription Printed Referrals: Doctor,Your [STAFF PHYSICIAN] - 1 Week if not improving
--- NOTE | 2020-05-31 17:50 | RAD_ITS ---
STUDY: X-RAY CHEST REASON FOR EXAM: Female, 34 years old. SOB FOR PAST FEW DAYS TECHNIQUE: Portable chest COMPARISON: Chest radiograph 01/25/2017. FINDINGS: The lungs are clear and expanded. There is no demonstrated pleural abnormality. Normal size heart. Normal mediastinum and cheng. Normal visualized pulmonary arteries. Normal visualized aortic arch and descending thoracic aorta. Normal visualized thoracic spine. Normal visualized ribs, clavicles, and shoulders. There is no demonstrated abnormality of the visualized soft tissue structures of the upper abdomen. RAD/Chest 1 View (Portable) IMPRESSION: Normal x-ray examination of the chest. Electronically Signed: Everton Wild, at 18:10 EDT Tel , Service support ,
[2020-05-31] MEDS: Ondansetron ODT 4 MG Tablet 8 MG PO (17:53)
[2020-05-31 18:52] LABS: Probe Check PASS; Specimen Processing Control PASS
[2020-05-31 18:59] VITALS: PULSE 68; RESP 19; O2SAT 99
--- NOTE | 2020-05-31 18:59 | ED.RN ---
DISCHARGE INSTRUCTIONS GIVEN TO AND REVIEWED WITH PATIENT, PATIENT RUBEN QUESTIONS OR CONCERNS AND VOICES UNDERSTANDING OF DISCHARGE INSTRUCTIONS. PT AMBULATES OUT OF ROOM WITHOUT DIFFICULTY.
== END 2020-05-31 19:00 | disposition home or self-care (01) ==
PROVIDERS: Emergency Provider Emergency Medicine
DX: J06.9 Acute upper respiratory infection, unspecified (principal); F17.200 Nicotine dependence, unspecified, uncomplicated
CPT/HCPCS: 71045; 87635; 94799; 99283; U0003

== ENCOUNTER 2020-12-29 10:17 | Emergency (ER) | payer SELFPAY ==
[2020-12-29 10:18] VITALS: BP 135/76; PULSE 96; RESP 16; TEMP 36.9; O2SAT 100; BMI 31.1
[2020-12-29 10:31] VITALS: O2SAT 100
--- NOTE | 2020-12-29 10:31 | EKG12_ITS ---
Test Reason : CP Blood Pressure : / mmHG Vent. Rate : 085 BPM Atrial Rate : 085 BPM P-R Int : 166 ms QRS Dur : 082 ms QT Int : 372 ms P-R-T Axes : 068 056 045 degrees QTc Int : 442 ms Normal sinus rhythm Borderline ECG Confirmed by YADI FLORES, MALI ([id number]), metropolitan editor PAULY REZA ([id number]) on 01/04/2021 2:07:23 PM Referred By: [place] Confirmed By:MALI GRULLON MD
--- NOTE | 2020-12-29 10:31 | RAD_ITS ---
STUDY: X-RAY CHEST REASON FOR EXAM: Female, 35 years old. Chest pain TECHNIQUE: Single AP portable view of the chest. COMPARISON: Comparison is made with prior study dated 05/31/2020. FINDINGS: EKG electrodes are seen. The lungs are clear and expanded. There is no demonstrated pleural abnormality. Normal size heart. Normal mediastinum and cheng. Normal visualized pulmonary arteries. Normal visualized aortic arch and descending thoracic aorta. Normal visualized thoracic spine. Normal visualized ribs, clavicles, and shoulders. There is no demonstrated abnormality of the visualized soft tissue structures of the upper abdomen. RAD/Chest 1 View (Portable) IMPRESSION: Normal x-ray examination of the chest. Electronically Signed: Soham Hill MD at 11:16 EST , Service support ,
--- NOTE | 2020-12-29 10:33 | ED.DCSUM_ITS ---
- ER Visit Summary Date of Service: 12/29/20 Chief Complaint: Left-sided chest pain History of Present Illness: The patient is a 35 F seen past medical or surgical history. No family history of cardiac disease at a young age or clotting disorder. Patient states since last Monday she has had constant left lateral lower chest pain. She is not short of breath. She denies any hemoptysis. No recent travel, surgery or immobilization. Not pleuritic. Nothing particular makes the pain better or worse. Its not exertional. She has no history of diabetes, hypertension or high cholesterol. She does smoke. She denies any leg pain or swelling. She has no known cardiac history. She is on no hormone rep lacement. Physical Examination: Well-appearing female vital signs stable afebrile. Pulse ox 9% on room air no signs hypoxia. H EENT exam unremarkable. Neck nontender no lymphadenopathy. No JVD. Lungs clear to auscultation bilaterally. Heart regular rhythm no murmur. Chest were nontender. Patient rotates from left to right she has no reproducible chest wall pain. Abdomen soft nontender normal bowel sounds no peritoneal signs. Remedies moves all 4. Calves nontender without edema or cords. Neurologically she is awake and alert with no focal motor deficit. Back nontender. Test Results: EKG shows normal sinus rhythm rate 85 with no acute signs of MA or ischemia. No [id number]. Chest x-ray 1 view interpreted by myself shows no acute abnormality. Normal cardiac silhouette mediastinum. Normal lung woodard. Also read by the radiologist and agrees. CBC white count 9 hemoglobin 11 which is her baseline. Chemistries potassium 3.3 normal creatinine gap. Troponin normal. D-dimer normal. Serum test negative. Artem exam at 11:23 AM patient is doing well. She and I went over all of her test results. I do not think this is cardiac etiology. She is comfortable being discharged home. Emergency Department Course and Treatment: Patient with atypical nonexertional nonreproducible left-sided chest pain. She has no significant risk factors for DVT or PE nor any history. Exam is benign. She undergo a cardiac work-up which I have very low suspicion that this is cardiac etiology. Treatment Plan: Tylenol and/or Motrin for pain. Follow-up if not improving. Return if worse. Disposition: Discharge Impression: Left-sided chest pain uncertain etiology This note was generated with [employer] dictation software. It may contain incorrect words, spelling, and punctuation that were not noted in review of the chart prior to signing ED Disposition - Plan for ED Patient: Referrals: Care Physician,No Primary [Primary Care Provider] -
[2020-12-29 10:53] LABS: Absolute Neutrophil Count 6.7 X10^3/uL (2.0-7.7); Basophil# 0.04 X10^3/uL; Basophil% 0.4 % (0-1); Eosinophils% 1.1 % (0-5); Hemoglobin 11.4 g/dL (12.0-15.0); Lymphocyte % 19.8 % (19-41); Mean Corp Hgb Conc 31.7 g/dL (32-36); Mean Corpuscular Hgb 28.5 pg (27.0-32.0); Mean Platelet Vol. 9.6 fl (6.2-12.0); Monocyte# 0.47 X10^3/uL; Monocyte% 5.2 % (0-10); NRBC Flagged by Analyzer 0 % (0-5); Neutrophil # 6.67 X10^3/uL (2.7-7.7); Neutrophil % 73.2 % (47-70); Platelet Count 245 K/mm3 (150-450); RBC Distribution Width CV 14.6 % (11.6-14.6); RBC Distribution Width SD 48.6 fl (35.1-43.9); White Blood Count 9.1 K/mm3 (4.4-11.0)
[2020-12-29 11:09] LABS: Internal QC Validated? YES +Cl - CLEAR BKGD; Pregnancy, Serum, hCG Quali. NEGATIVE Negative
[2020-12-29 11:14] LABS: Anion Gap 5 (5-15); BUN 7 mg/dL (7-18); BUN/Creat Ratio 8.4 RATIO (10-20); Calcium,Total 8.7 mg/dL (8.5-10.1); Chloride 106 mmol/L (98-107); Creatinine, Serum 0.84 mg/dL (0.55-1.02); EST Glomerular Filtration Rate 82 mL/min (>60); Est Glom Filt Rate - Afr Amer 100 mL/min (>60); Estimated Creatinine Clearance 70.54 ml/min; Glucose 95 mg/dL (74-106); Potassium 3.3 mmol/L (3.5-5.1); Sodium Level 138 mmol/L (136-145)
[2020-12-29 11:19] LABS: D-Dimer Quantitative (DVT/PE) 0.28 FEU/ug/m (0.27-0.49)
--- NOTE | 2020-12-29 11:24 | ED.DEP ---
ED Disposition - Plan for ED Patient: Disposition: Home or Assisted Living Instructions: ED Chest Pain, Uncertain Cause Referrals: Karen Smith [NON-STAFF] - 1-2 Days if not improving Additional Instructions: All your test today were normal including your chest x-ray, EKG and all your lab work. There is no signs of this being your heart or blood clot. Tylenol and/or Motrin for pain. Follow-up if not improving. Return if feeling worse.
[2020-12-29 11:37] VITALS: PULSE 79; RESP 16; O2SAT 100
== END 2020-12-29 11:38 | disposition home or self-care (01) ==
PROVIDERS: Emergency Provider Emergency Medicine
DX: R07.89 Other chest pain (principal); F17.200 Nicotine dependence, unspecified, uncomplicated
CPT/HCPCS: 71045; 80048; 84484; 84703; 85025; 85379; 93005; 99283; A4216

== ENCOUNTER 2021-06-07 09:35 | Emergency (ER) | payer MEDICARE, SELFPAY ==
[2021-06-07 09:35] VITALS: BP 128/90; PULSE 97; RESP 17; TEMP 36.4; O2SAT 98; BMI 26.0
--- NOTE | 2021-06-07 10:12 | RAD_ITS ---
STUDY: X-RAY CHEST REASON FOR EXAM: Female, 35 years old. Cough fever suspect covid TECHNIQUE: Single AP portable view of the chest. COMPARISON: Comparison is made with prior study dated 12/29/2020. FINDINGS: The lungs are clear and expanded. There is no demonstrated pleural abnormality. Normal size heart. Normal mediastinum and cheng. Normal visualized pulmonary arteries. Normal visualized aortic arch and descending thoracic aorta. Normal visualized thoracic spine. Normal visualized ribs, clavicles, and shoulders. There is no demonstrated abnormality of the visualized soft tissue structures of the upper abdomen. RAD/Chest 1 View (Portable) IMPRESSION: Normal x-ray examination of the chest. Electronically Signed: Soham Hill MD at 11:07 EDT , Service support ,
--- NOTE | 2021-06-07 10:13 | EX.ED.VIS.UR ---
HPI HPI - URI History of Present Illness Chief Complaint: Cold Sx Informant: patient Onset/Context/Timing Onset: Weeks (1) Context: Gradual Onset Timing: Continuous Quality: see below Current Severity: Moderate Maximum Severity: Moderate Associated Symptoms Associated Symptoms: Positive for Headache, Diarrhea and Nonproductive cough; Negative for Nasal Congestion, Sinus Pressure, Nausea, Vomiting, Shortness of Breath, Chest Pain and Hemoptysis Narrative Narrative: Patient with 1 week of cough, body aches, fevers, some diarrhea, malaise, and now loss of taste and smell. She presents during the most recent delta Covid surge. She has not been vaccinated nor has she had Covid in the past. No contact with anyone that she knows of with Covid. She works at a fast food restaurant locally. She is healthy otherwise. She denies any dyspnea. She has not been tested during this illness. ROS ROS ED Constitutional Constitutional ED: Reports body ache(s), chills, fever(s), headache(s) and malaise Eyes Eyes: Denies change in vision or diplopia ENT ENT ED: Denies rhinorrhea or sore throat Cardiovascular Cardiovascular: Denies chest pain or palpitations Respiratory/Chest Respiratory/Chest: Reports cough; Denies dyspnea Gastrointestinal Gastrointestinal: Reports diarrhea; Denies abdominal pain, nausea or vomiting Genitourinary Genitourinary ED: Denies dysuria or hematuria Musculoskeletal Musculoskeletal: Denies back pain or neck pain Integumentary Denies abscess or rash Neurologic Neurologic: Denies headache(s), paresthesias or weakness Psychiatric Psychiatric: Denies anxiety or suicidal thoughts PFSH PFSH no medical history Allergy/AdvReac Type Severity Reaction Status Date / Time aspirin Allergy Hives Verified 06/07/21 09:37 Penicillins Allergy Rash Verified 06/07/21 09:37 Social History Smoking Status: Current every day smoker tobacco type: cigarettes EXAM Physical Exam Const Vital Signs: 06/07/21 09:35 06/07/21 11:15 Temperature 97.6 F L Temperature Source Temporal Pulse Rate 97 Respiratory Rate 17 Respiratory Effort Normal Non-Labored Respiratory Depth Normal Respiratory Pattern Normal Blood Pressure 128/90 H Blood Pressure Mean 102 Pulse Ox 98 Oxygen Delivery Method Room Air Positive well nourished and well developed General Appearance ED: well developed and NAD HEENT Reports moist mucous membranes normocephalic and atraumatic Eyes PERRL and EOMs intact bilaterally Neck full ROM and supple Resp normal respiratory effort and clear to auscultation bilaterally Cardio regular rate, regular rhythm and no murmurs Rate: Negative for tachycardic GI non-tender and non-distended Auscultation: normoactive bowel sounds Palpation: soft Back/Spine no CVA tenderness General Back: other FROM Extremity normal to inspection General Extremety ED: Negative for edema, pulses abnormal or tenderness General Extremity: Negative for edema or pulses abnormal Neuro oriented x3, CN's II-XII intact bilaterally and no sensory deficits noted Sensorium / Orientation: awake and alert Motor Exam: strength 5/5 throughout Skin no rashes or lesions noted and no wounds MDM MDM MDM Narrative Medical decision making narrative: Rapid Covid confirms that this is COVID-19. Her chest x-ray is normal. She is healthy, at this time she does not meet qualifications or indications for admission, remdesivir, steroids, or monoclonal antibody infusion. She is given appropriate supportive care instructions and reasons to return, and a note for work. Lab Data Attestation: I reviewed the patient's lab results. Radiography Chest X-Ray - ED: 1 View, Read by ED Physician, Normal and No Acute Disease Diagnostic Testing: Radiology Impression Chest X-Ray 06/07/21 10:12 IMPRESSION: Normal x-ray examination of the chest. Electronically Signed: Soham Hill MD at 11:07 EDT , Service support , Discharge Plan Triage Chief Complaint: Cold Sx ED Provider: Charlie Melgar Dx/Rx/DC Orders Clinical Impression: COVID-19 Instructions: Coronavirus Disease 2019 (COVID-19): Caring for Yourself or Others Stand Alone Forms: ED Work / School Excuse Primary Care Provider: Care Physician,No Primary Referrals: Karen Smith [NON-STAFF] - As Needed Care Physician,No Primary [Primary Care Provider] - Activity Restrictions/Additional Instructions: Get a home portable pulse oximeter for your finger to check your oxygen levels and return to the hospital if you go below 90% and/or having significant shortness of breath. Disposition Disposition: Home, Self Care
[2021-06-07] MEDS: Ketorolac 60 MG/2 ML Vial IM (10:26)
== END 2021-06-07 11:45 | disposition home or self-care (01) ==
PROVIDERS: Emergency Provider Emergency Medicine
DX: U07.1 COVID-19 (principal); F17.210 Nicotine dependence, cigarettes, uncomplicated
CPT/HCPCS: 71045; 87426; 96372; 99282